=== PATIENT | female | born 1960 | race Caucasian/White ===

== ENCOUNTER 2018-05-14 09:10 | Outpatient (CLI) | payer MEDICARE | END 2018-05-14 09:11 | disposition home or self-care (01) | LOC: PAT 09:10 ==

== ENCOUNTER 2018-05-15 06:02 | Day surgery (SDC) | payer MEDICARE ==
[2018-05-14 10:19] VITALS: BMI 31.4
[2018-05-15] MEDS ORDERED: Lidocaine 2% Inj (20ml) ONE (07:26)
[2018-05-15] MEDS ORDERED: Bupivacaine 0.25% 50 ML INJ IJ ONE (07:27)
[2018-05-15] MEDS ORDERED: Propofol 10 mg/ml Inj (20 ML) ONE (08:12)
[2018-05-15] MEDS ORDERED: Midazolam 2 MG/2 ML VIAL ONE (08:13)
[2018-05-15] MEDS ORDERED: Gentamicin 80 mg in 0.9% NS 80 MG/100 ML BAG IVPB ONE (08:20)
[2018-05-15] MEDS ORDERED: Dexamethasone 4 mg/1 ml ONE ×2 (08:20→08:21)
[2018-05-15] MEDS ORDERED: HYDROmorphone 0.5 mg/0.5 ml ISec IVP PRN (08:32)
[2018-05-15] MEDS ORDERED: Lactated Ringer's 1,000 ML IV SCH (08:45)
[2018-05-15] MEDS ORDERED: HYDROmorphone 0.5 mg/0.5 ml ISec IVP ONE ×4 (09:20→10:05)
--- NOTE | 2018-05-15 09:20 | PCM.SURG1 ---
Surgeon's Initial Post Op Note - Surgeon's Notes Surgeon: Dr. Hobbs, DPM Lead Miner: Dr. Génesis Juarez, PGY1 Type of Anesthesia: General Endo Pre-Operative Diagnosis: Non-healing right leg ulcerations Operative Findings: See Dictation. I: 3cc of dexamethasone. M: 3-0 vicryl, integra graft Post-Operative Diagnosis: Same Operation Performed: Right leg debridement with application of integra graft Specimen/Specimens Removed: None Estimated Blood Loss: EBL {In ML}: 1 Blood Products Given: N/A Drains Used: No Drains Post-Op Condition: Good Date of Surgery/Procedure: 05/15/18 Time of Surgery/Procedure: 09:20
[2018-05-15] MEDS ORDERED: HYDROmorphone 0.5 mg/0.5 ml ISec ONE ×4 (09:26→10:04)
[2018-05-15] MEDS ORDERED: Oxycodone/Acetaminophen 5/325 mg Tab PO PRN ×2 (09:31)
[2018-05-15 10:45] VITALS: PULSE 76
[2018-05-15 10:53] VITALS: RESP 16; TEMP 98
[2018-05-15 10:59] VITALS: BP 103/50; O2SAT 97
--- NOTE | 2018-05-16 16:25 | OP ---
PROCEDURE DATE: 05/15/2018 SURGEON: Koki Hobbs DPM TELETYPESETTER MONITOR: Génesis Orantes, PGY-1 TYPE OF ANESTHESIA: General. 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 PROCEDURE: Right leg wound debridement with the use of Misonix with the application of Integra wound graft. INDICATIONS: The patient is a 57-year-old female with the above diagnosis. The patient has exhausted all conservative treatment at this time and now requires surgical intervention. The patient signed the consent after careful explanation of risks, benefits, complications, and alternatives for the surgical procedure. No guarantees were given nor implied. N.p.o. status was confirmed prior to taking the patient into the operating room. PREPARATION: The patient was brought back into the operating room, placed on the operating room table in the supine position. Timeout was performed for correct identification of the patient and procedure. After induction of general anesthesia, the right lower extremity was then prepped and draped in a normal sterile manner and the procedure began. No tourniquet was used during the procedure. DESCRIPTION OF PROCEDURE: Attention was directed to the right lower extremity where several ulcerations were noted including two ulcerations appreciated to the posterior aspect of the leg. The more proximal one being larger in nature; one on the anterior aspect of the leg, one ulceration appreciated to the medial aspect of the leg. The ulcerations were noted to be comprised of granular and fibrotic tissue with no visible bone exposure. Mild serous drainage was noted to the wound bed. Using the Misonix debridement, probe handle on setting 7 with a mixture of gentamicin and normal sterile saline, the ulcers were excisionally debrided of all fibrotic and nonviable tissue until a healthy and fresh bleeding granular tissue appeared. Next, dexamethasone was injected into the larger, more proximal ulceration noted to the posterior leg and the ulceration noted to the anterior leg. Next, the Integra graft was applied to each ulceration and the edges sutured with 3-0 Vicryl until secure. The site was then dressed with Xeroform, 4 x 4 gauze, ABD, and Kerlix. POSTOPERATIVE CONDITION: The patient tolerated the anesthesia and procedure well and was escorted to the recovery room with all vital signs stable and neurovascular status intact to the right leg. The patient is to remain weightbearing as tolerated to the right lower extremity. The patient to follow up with Dr. Hobbs in office on Sunday. GÉNESIS ORANTES Koki Hobbs DPM
== END 2018-05-15 12:30 | disposition home or self-care (01) ==
LOC: SDS 06:02
PROVIDERS: ATTEND Podiatrist
DX: L97.919 Non-pressure chronic ulcer of unspecified part of right lower leg with unspecified severity (principal); L92.1 Necrobiosis lipoidica, not elsewhere classified; I10 Essential (primary) hypertension
CPT/HCPCS: 15002; 15271; 87070; 87075; 88305; J0690; J1100 ×2; J1170; J1580; J2001; J2250; J2405; J2704; J2765; J3010; J7030; J7120 ×2; Q4104

== ENCOUNTER 2018-07-03 10:27 | Outpatient (CLI) | payer MEDICARE, MEDICAID | END 2018-07-03 10:28 | disposition home or self-care (01) | LOC: RAD 10:27 | DX: E13.620 Other specified diabetes mellitus with diabetic dermatitis (principal); L97.912 Non-pressure chronic ulcer of unspecified part of right lower leg with fat layer exposed ==